=== PATIENT | male | born 2000 | race Two or more races ===

== ENCOUNTER 2020-04-28 09:56 | Outpatient (CLI) | payer OTHER ==
[~2020-04-28] VITALS: Ht 182.9 cm; Wt 61.2 kg
== END 2020-04-28 10:21 | disposition home or self-care (01) ==
LOC: OFIC 805 09:56
PROVIDERS: ATTEND Otolaryngology
DX: H90.12 Conductive hearing loss, unilateral, left ear, with unrestricted hearing on the contralateral side (principal); H61.23 Impacted cerumen, bilateral